=== PATIENT | female | born 2000 | race Caucasian/White ===

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

== ENCOUNTER → 2022-04-19 | Outpatient (CLI) | payer MEDICAID | LOC: LABNPT 14:20 | PROVIDERS: ATTEND Family Medicine | DX: Z11.3 Encounter for screening for infections with a predominantly sexual mode of transmission (principal); A74.9 Chlamydial infection, unspecified; N89.8 Other specified noninflammatory disorders of vagina | CPT/HCPCS: 87210; 87491; 87591 ==

== ENCOUNTER → 2022-04-19 | Outpatient (CLI) | payer MEDICAID ==
[2022-04-19 21:48] LABS: HEPATITIS C ANTIBODY C Non-Reactive (Non-Reactive)
== END ==
LOC: LAB FS 09:26
PROVIDERS: ATTEND Family Medicine
DX: Z11.3 Encounter for screening for infections with a predominantly sexual mode of transmission (principal); A74.9 Chlamydial infection, unspecified
CPT/HCPCS: 36415; 86592; 86803; 87389

== ENCOUNTER → 2022-06-30 | Outpatient (CLI) | payer MEDICAID ==
[~2022-06-30] MED LIST changes: +AMOX500C2 PO; +METR-145 PO
[2022-06-30 13:22] LABS: HEMATOCRIT 39 % (35-52); HEMOGLOBIN 13.3 g/dL (11.5-16.0); MEAN CORPUSCULAR HEMOGLOBIN 29 pg (25-34); MEAN CORPUSCULAR HGB CONC 34 g/dL (32-36); MEAN CORPUSCULAR VOLUME 85 fL (80-99); MEAN PLATELET VOLUME 11.3 fL (9.0-12.2); PLATELET COUNT 408 10^3/uL (130-400); WHITE BLOOD COUNT 11.7 10^3/uL (4.3-11.0)
== END ==
LOC: LAB FS 11:59
PROVIDERS: ATTEND Family Medicine
DX: Z34.01 Encounter for supervision of normal first pregnancy, first trimester (principal); Z3A.01 Less than 8 weeks gestation of pregnancy
CPT/HCPCS: 36415; 80055; 84702; 85027; 87088; 87186; 87389

== ENCOUNTER 2022-07-01 21:26 | Emergency (ER) | payer MEDICAID ==
[~2022-07-01 21:26] MED LIST changes: -AMOX500C2 PO; -METR-145 PO
--- NOTE | 2022-07-01 21:37 | ED GU-Female ---
General Chief Complaint: - Reproductive Stated Complaint: VAGINAL ITCHING/BURNING Source: patient History of Present Illness Date Seen by Provider: Jul 01, 2022 Time Seen by Provider: 21:37 Initial Comments 22-year-old female that is [id number] P0 approximately 5 weeks estimated gestational age presenting with complaints of vaginal itching and burning. She has some pain with urination today as well. She denies any vaginal bleeding or spotting. She has been having some thick white discharge in the last few days. She denies fever, chills, nausea, vomiting, headache, abdominal pain, change in bowels. She states that her most recent sexual partner is currently in [place] [facility]. This was a different partner than when she had around the time she got . Timing/Duration: this afternoon Severity/Quality: moderate, burning Location: vaginal Radiation: vaginal Activities at Onset: none Prior Genitourinary Problems: similar symptoms (Prior chlamydia infection) Sexual [place] History: less than 2 months ago, multiple partners Modifying Factors: Worsens With Movement, Worsens With Urinating Associated Symptoms: No abdominal pain, No diaphoresis; dysuria; No fever/chills, No loss of bladder control, No lower back pain, No lumps, No mass, No nausea/vomiting, No nocturia, No polyuria, No swelling, No syncope, No urinary frequency Allergies and Home Medications Allergies Coded Allergies: lavender (Lavandula angustifolia) (Verified Allergy, Unknown, 03/24/21) Patient Home Medication List Home Medication List Reviewed: Yes Amoxicillin (Amoxicillin) 500 Mg Capsule, 500 MG PO TID Prescribed by: LEONA CHEN on 07/01/222236 Ibuprofen (Ibuprofen) 600 Mg Tablet, 600 MG PO Q8H PRN for PAIN-MILD Prescribed by: DEREJE MAC on 03/24/21 0240 Metronidazole (Metronidazole) 500 Mg Tablet, 500 MG PO BID Prescribed by: LEONA CHEN on 07/01/222236 Review of Systems Review of Systems Constitutional: No chills, No fever EENTM: no symptoms reported Respiratory: no symptoms reported Cardiovascular: no symptoms reported Gastrointestinal: no symptoms reported Genitourinary: see HPI, burning, discharge, dysuria Musculoskeletal: no symptoms reported Skin: no symptoms reported Psychiatric/Neurological: Anxiety Past Nmvvenh-Rjhyfu-Yytifn Hx Patient Social History Tobacco Use?: No Use of E-Cig and/or Vaping dev: No Substance use?: No Alcohol Use?: No Pt feels they are or have been: No Past Medical History Surgery/Hospitalization HX: [id number], Anemia, Painful heavy menses, Depression/anxiety Surgeries: No Physical Exam Vital Signs Vital Signs - First Documented 07/01/22 21:29 Temp 37.5 Pulse 76 Resp 16 B/P (MAP) 120/80 (93) Pulse Ox 100 O2 Delivery Room Air Capillary Refill : Height, Weight, BMI Height: '" Weight: lbs. oz. kg; 18.00 BMI Method: General Appearance: WD/WN, no apparent distress Cardiovascular: normal peripheral pulses, regular rate, rhythm Gastrointestinal: normal bowel sounds, non tender, soft, no pulsatile mass Pelvic: other (patient refused as she states she would want a female provider for the pelvic exam) Neurologic/Psychiatric: alert, oriented x 3 Skin: normal color, warm/dry Progress/Results/Core Measures Suspected Sepsis SIRS Temperature: Pulse: Respiratory Rate: Blood Pressure / Mean: Results/Orders Lab Results Laboratory Tests Test 07/01/22 21:33 07/01/22 22:30 Range/Units Urine Color YELLOW Urine Clarity CLOUDY Urine pH 7.0 5-9 Urine Specific [place] 1.025 H 1.016-1.022 Urine Protein NEGATIVE NEGATIVE Urine Glucose (UA) NEGATIVE NEGATIVE Urine Ketones NEGATIVE NEGATIVE Urine Nitrite NEGATIVE NEGATIVE Urine Bilirubin NEGATIVE NEGATIVE Urine Urobilinogen 0.2 < = 1.0 MG/DL Urine Leukocyte Esterase 2+ H NEGATIVE Urine RBC (Auto) NEGATIVE NEGATIVE Urine RBC NONE /HPF Urine WBC 50-100 H /HPF Urine Squamous Epithelial Cells 10-25 H /HPF Urine Crystals NONE /LPF Urine Bacteria MODERATE H /HPF Urine Casts NONE /LPF Urine Mucus SMALL H /LPF Urine Trichomonas PRESENT /HPF Urine Culture Indicated YES Urine Test POSITIVE NEGATIVE My Orders Orders - LEONA CHEN MD Ua Culture If Indicated (07/01/22 21:35) Hcg,Qualitative Urine (07/01/22 21:35) Urine Culture (07/01/22 21:33) Neis Silvano Dna Urine Test (07/01/22 22:19) Chlamydia Trachomatis Urine (07/01/22 22:19) Ceftriaxone (Rocephin) (07/01/22 22:19) Azithromycin Tablet (Zithromax Tablet) (07/01/22 22:19) Lidocaine 1% Inj 20 Ml (Xylocaine 1% Inj (07/01/22 22:30) Metronidazole Tablet (Flagyl Tablet) (07/01/22 22:30) Medications Given in ED Current Medications Medications Dose Ordered Sig/Lonnie Route Start Time Stop Time Status Last Admin Dose Admin Lidocaine HCl 0.9 ml ONCE ONCE INJ 07/01/22 22:30 07/01/22 22:31 DC 07/01/22 22:42 0.9 ML Metronidazole 500 mg ONCE ONCE PO 07/01/22 22:30 07/01/22 22:31 DC 07/01/22 22:41 500 MG Vital Signs/I&O 07/01/22 07/01/22 21:29 22:44 Temp 37.5 37.5 Pulse 76 76 Resp 16 16 B/P (MAP) 120/80 (93) 120/80 Pulse Ox 100 100 O2 Delivery Room Air Room Air Capillary Refill : Progress Note : Progress Note Urinalysis was obtained and showed patient had trichomonas as well as leukocyte esterase, bacteria, white blood cells to go along with a UTI. They did not see any yeast on the microscopic exam of her urine. Counseled patient about the findings and also discussed her care with Dr. Sung. Patient saw Dr. Sung on Tuesday for her initial OB visit. After discussion with Dr. Sung she was in agreement of using Rocephin and Zithromax here in the ED for treatment for possible gonorrhea or chlamydia. Urine testing for gonorrhea and chlamydia is pending. To treat for the UTI will use amoxicillin. After discussion with Dr. Sung and review of the online medical reference up-to-date will use Flagyl 500 mg p.o. twice daily x7 days to treat for the trichomonas. Counseled on follow- up and return precautions. Advised to check back with the clinic about possible pelvic exam and monitoring for test of cure Departure Impression Primary Impression: Trichomonas vaginalis infection Additional Impressions: Acute cystitis without hematuria UTI (urinary tract infection) in in first trimester Vaginitis affecting in first trimester, antepartum Disposition: HOME, SELF-CARE Condition: Stable Departure-Patient Inst. Decision time for Depature: 22:34 Referrals: SNEHA SUNG MD (PCP/Family) Primary Care Physician Patient Instructions: Sexually Transmitted Diseases ED, Urinary Tract Infections in , STD Prevention Add. Discharge Instructions: Stay well hydrated and drink plenty of water and cranberry juice to help flush out infection Take full course of antibiotics to treat for infection. You will have 2 antibiotics, Flagyl (Metronidazole) and Amoxicillin Call Dr. Sung's office in the am and she may want to have you come in for pelvic exam Your tests on the urine to look for gonorrhea and chlamydia are running but will take a day or two to come back. The shot and pills you got tonight will cover you and treat if either of these infections are present. All discharge instructions reviewed with patient and/or family. Voiced understanding. Scripts Metronidazole (Metronidazole) 500 Mg Tablet 500 MG PO BID for Trichomonas for 7 Days, #14 TAB 0 Refills Prov: LEONA CHEN MD 07/01/22 Amoxicillin (Amoxicillin) 500 Mg Capsule 500 MG PO TID for UTI for 7 Days, #21 CAP 0 Refills Prov: LEONA CHEN MD 07/01/22 LEONA CHEN MD Jul 01, 2022 21:37
[2022-07-01 21:41] LABS: BILIRUBIN,URINE NEGATIVE (NEGATIVE); CLARITY,URINE CLOUDY; COLOR,URINE YELLOW; GLUCOSE, URINE (UA) NEGATIVE (NEGATIVE); KETONES,URINE NEGATIVE (NEGATIVE); LEUKOCYTE ESTERASE ,URINE 2+ (NEGATIVE); NITRITE,URINE NEGATIVE (NEGATIVE); PROTEIN,URINE NEGATIVE (NEGATIVE)
[2022-07-01 21:52] LABS: BACTERIA,URINE MODERATE /HPF; TRICHOMONAS,URINE PRESENT /HPF; WBC,URINE 50-100 /HPF
[2022-07-01 21:53] LABS: HCG,QUALITATIVE URINE POSITIVE (NEGATIVE)
[2022-07-01] MEDS ORDERED: AZITHROMYCIN 250 MG TAB (ZITHROMAX) PO STA (22:19)
[2022-07-01] MEDS ORDERED: metroNIDAZOLE 500MG/100ML IVPB 100 ML IV STA (22:19)
[2022-07-01] MEDS ORDERED: cefTRIAXone 250 MG/2.5 ML ML IM STA (22:19)
[2022-07-01] MEDS ORDERED: metroNIDAZOLE 500 MG (FLAGYL) TAB PO ONE (22:30)
[2022-07-01] MEDS ORDERED: LIDOCAINE 1% INJ 20 ML VIAL INJ ONE (22:30)
[2022-07-01] MEDS ORDERED: AMOX500C2 PO (22:37)
[2022-07-01] MEDS ORDERED: METR-145 PO (22:37)
[2022-07-01 22:44] VITALS: BP 120/80
== END 2022-07-01 22:46 | disposition home or self-care (01) ==
LOC: EDUNIT# 21:26 → ER FS 21:27
DX: O98.311 Other infections with a predominantly sexual mode of transmission complicating pregnancy, first trimester (principal); A59.01 Trichomonal vulvovaginitis; O23.11 Infections of bladder in pregnancy, first trimester; N30.90 Cystitis, unspecified without hematuria; Z3A.01 Less than 8 weeks gestation of pregnancy; Z28.310 Unvaccinated for COVID-19
CPT/HCPCS: 36415; 81000; 84703; 87088; 87491; 87591; 96372; 99284

== ENCOUNTER → 2022-07-21 | Outpatient (CLI) | payer MEDICAID ==
[~2022-07-21] MED LIST changes: +AMOX500C2 PO; +METR-145 PO
[2022-07-21 16:12] LABS: CLARITY,URINE SL CLOUDY; COLOR,URINE YELLOW; GLUCOSE, URINE (UA) NEGATIVE (NEGATIVE); PROTEIN,URINE NEGATIVE (NEGATIVE)
[2022-07-21 16:13] LABS: BACTERIA,URINE FEW /HPF; BILIRUBIN,URINE NEGATIVE (NEGATIVE); KETONES,URINE NEGATIVE (NEGATIVE); LEUKOCYTE ESTERASE ,URINE 2+ (NEGATIVE); NITRITE,URINE NEGATIVE (NEGATIVE); WBC,URINE 50-100 /HPF
== END ==
LOC: LABNPT 16:05
PROVIDERS: ATTEND Family Medicine
DX: Z34.01 Encounter for supervision of normal first pregnancy, first trimester (principal); Z3A.08 8 weeks gestation of pregnancy
CPT/HCPCS: 81000; 87088

== ENCOUNTER 2022-07-31 01:55 | Emergency (ER) | payer MEDICAID ==
[2022-07-31] MEDS ORDERED: CEPHALEXIN 250 MG (KEFLEX) CAP PO ONE (02:30)
--- NOTE | 2022-07-31 02:31 | ED GU-Female ---
General Chief Complaint: OB < 20 WEEKS Stated Complaint: /BLEEDING Nursing Triage Note: Pt states she is 10 weeks and has a small amount of vaginal bleeding Source: patient Exam Limitations: no limitations History of Present Illness Date Seen by Provider: Jul 31, 2022 Time Seen by Provider: 02:07 Initial Comments This 22-year-old young lady presents at around 9 to 10 weeks gestational age with concerns about perineal spotting about an hour ago. She noticed blood on the toilet paper when wiping. She denies any pain or cramping at present. She has noted some mild vaginal discomfort previously. She denies dysuria. She describes a discharge that seems normal and physiologic for . She was seen in June and diagnosed with trichomonas. She did complete the medication including Flagyl and reports no sexual activity of any kind since treatment. She was diagnosed with urinary tract infection in the clinic on Tuesday. She has not yet picked up her antibiotic. She also reports ultrasound on Tuesday which demonstrated a normal single intrauterine . Dr. Sung is providing her care. Allergies and Home Medications Allergies Coded Allergies: lavender (Lavandula angustifolia) (Verified Allergy, Unknown, 03/24/21) Patient Home Medication List Home Medication List Reviewed: Yes Amoxicillin (Amoxicillin) 500 Mg Capsule, 500 MG PO TID Prescribed by: LEONA CHEN on 07/01/222236 Ibuprofen (Ibuprofen) 600 Mg Tablet, 600 MG PO Q8H PRN for PAIN-MILD Prescribed by: DEREJE MAC on 03/24/21 0240 Metronidazole (Metronidazole) 500 Mg Tablet, 500 MG PO BID Prescribed by: LEONA CHEN on 07/01/222236 Review of Systems Review of Systems Constitutional: no symptoms reported EENTM: no symptoms reported Respiratory: no symptoms reported Cardiovascular: no symptoms reported Gastrointestinal: no symptoms reported Genitourinary: see HPI : Yes LMP: May 26, 2022 Musculoskeletal: no symptoms reported Skin: no symptoms reported Psychiatric/Neurological: No Symptoms Reported Endocrine: No Symptoms Reported Past Ewspada-Ibvjzf-Blhvhq Hx Patient Social History Tobacco Use?: No Use of E-Cig and/or Vaping dev: No Substance use?: No Alcohol Use?: No Pt feels they are or have been: No Past Medical History Surgery/Hospitalization HX: [id number], Anemia, Painful heavy menses, Depression/anxiety Surgeries: No Respiratory: No Cardiac: No Neurological: No : Yes Last Menstrual Period: May 26, 2022 Reproductive Disorders: Yes Female Reproductive Disorders: Menstrual Problems Sexually Transmitted Disease: Yes (History of trichomonas) Genitourinary: No Gastrointestinal: No Musculoskeletal: No Endocrine: No HEENT: No Cancer: No Psychosocial: Yes Anxiety, Depression Physical Exam Vital Signs Vital Signs - First Documented 07/31/22 01:55 Temp 37.0 Pulse 94 Resp 18 B/P (MAP) 124/81 (95) Pulse Ox 98 O2 Delivery Room Air Capillary Refill : Less Than 3 Seconds Height, Weight, BMI Height: '" Weight: lbs. oz. kg; 18.00 BMI Method: General Appearance: WD/WN, no apparent distress, thin HEENT: normal ENT inspection Neck: normal inspection Cardiovascular: regular rate, rhythm, no edema, no murmur Respiratory: lungs clear, normal breath sounds, no respiratory distress Gastrointestinal: normal bowel sounds, non tender, soft Extremities: normal inspection, no pedal edema Neurologic/Psychiatric: no motor/sensory deficits, alert, normal mood/affect, oriented x 3 Skin: normal color, warm/dry Progress/Results/Core Measures Suspected Sepsis SIRS Temperature: Pulse: 94 Respiratory Rate: 18 Blood Pressure 124 /81 Mean: 95 Results/Orders Lab Results Laboratory Tests Test 07/31/22 02:28 Range/Units Urine Color YELLOW Urine Clarity CLOUDY Urine pH 6.0 5-9 Urine Specific [place] >=1.030 1.016-1.022 Urine Protein NEGATIVE NEGATIVE Urine Glucose (UA) NEGATIVE NEGATIVE Urine Ketones NEGATIVE NEGATIVE Urine Nitrite NEGATIVE NEGATIVE Urine Bilirubin NEGATIVE NEGATIVE Urine Urobilinogen 0.2 < = 1.0 MG/DL Urine Leukocyte Esterase 2+ H NEGATIVE Urine RBC (Auto) 3+ H NEGATIVE Urine RBC TNTC H /HPF Urine WBC 25-50 H /HPF Urine Squamous Epithelial Cells NONE /HPF Urine Crystals NONE /LPF Urine Bacteria LARGE H /HPF Urine Casts NONE /LPF Urine Mucus LARGE H /LPF Urine Trichomonas MODERATE H /HPF Urine Culture Indicated YES My Orders Orders - ADRIAN WEBB MD Ua Culture If Indicated (07/31/22 02:27) Cephalexin Capsule (Keflex Capsule) (07/31/22 02:30) Urine Culture (07/31/22 02:41) Urine Culture (07/31/22 02:28) Medications Given in ED Current Medications Medications Dose Ordered Sig/Lonnie Route Start Time Stop Time Status Last Admin Dose Admin Cephalexin HCl 500 mg ONCE ONCE PO 07/31/22 02:30 07/31/22 02:31 DC 07/31/22 02:34 500 MG Vital Signs/I&O 07/31/22 07/31/22 01:55 02:36 Temp 37.0 37.0 Pulse 94 94 Resp 18 18 B/P (MAP) 124/81 (95) 124/81 Pulse Ox 98 98 O2 Delivery Room Air Room Air Capillary Refill : Less Than 3 Seconds Blood Pressure Mean: 95 Progress Note : Time: 02:37 Progress Note Patient has no pain or cramping. She already has an antibiotic prescribed for urinary tract infection which she has not yet picked up. She is receiving a dose of Keflex in the emergency room for initial treatment. heart tones by Doppler could not be obtained, largely due to interference from hyperactive bowel activity. Blood type on file is a positive so she does not need a RhoGAM injection. With the absence of notable pain or tenderness and patient's report of normal intrauterine a few days ago, no further evaluation needs to be performed in the ER. She is uncertain if a culture is being performed on her urine specimen in the clinic. We are therefore obtaining a urine specimen for culture. Departure Impression Primary Impression: UTI (urinary tract infection) in in first trimester Additional Impression: Spotting affecting in first trimester Disposition: 01 HOME, SELF-CARE Condition: Stable Departure-Patient Inst. Decision time for Depature: 02:31 Referrals: SNEHA SUNG MD (PCP/Family) Primary Care Physician Patient Instructions: Urinary Tract Infection, Adult (DC), Bleeding in Early ED Add. Discharge Instructions: Complete your antibiotics as prescribed. Please pick them up later today and start them promptly. Follow-up with Dr. Sung on Tuesday to review urine culture results. If Dr. Sung's clinic did not perform a urine culture, a urine culture is being processed through the ER that she can review. Return to care if you have worsening symptoms including escalating bleeding, n otable pain or cramping, fever, or other worsening symptoms. Discuss other follow-up instructions with Dr. Sung on Tuesday. All discharge instructions reviewed with patient and/or family. Voiced understanding. Copy Copies To 1: SNEHA SUNG MD, JOSHUA T MD Jul 31, 2022 02:31
[2022-07-31 02:35] LABS: BILIRUBIN,URINE NEGATIVE (NEGATIVE); COLOR,URINE YELLOW; GLUCOSE, URINE (UA) NEGATIVE (NEGATIVE); KETONES,URINE NEGATIVE (NEGATIVE); LEUKOCYTE ESTERASE ,URINE 2+ (NEGATIVE); NITRITE,URINE NEGATIVE (NEGATIVE); PROTEIN,URINE NEGATIVE (NEGATIVE)
[2022-07-31 02:36] VITALS: BP 124/81
[2022-07-31 02:42] LABS: BACTERIA,URINE LARGE /HPF; CLARITY,URINE CLOUDY; RBC,URINE TNTC /HPF; WBC,URINE 25-50 /HPF
[2022-07-31 02:43] LABS: TRICHOMONAS,URINE MODERATE /HPF
== END 2022-07-31 02:37 | disposition home or self-care (01) ==
LOC: EDUNIT# 01:55 → ER FS 01:57
DX: O26.851 Spotting complicating pregnancy, first trimester (principal); O23.41 Unspecified infection of urinary tract in pregnancy, first trimester; N39.0 Urinary tract infection, site not specified; Z3A.10 10 weeks gestation of pregnancy; Z28.310 Unvaccinated for COVID-19
CPT/HCPCS: 81000; 87088; 99283

== ENCOUNTER → 2022-08-18 | Outpatient (CLI) | payer MEDICAID | LOC: LAB FS 09:15 | PROVIDERS: ATTEND Family Medicine | DX: Z34.81 Encounter for supervision of other normal pregnancy, first trimester (principal); Z3A.00 Weeks of gestation of pregnancy not specified | CPT/HCPCS: 87210 ==

== ENCOUNTER 2022-10-30 18:30 | Emergency (ER) | payer MEDICAID ==
[~2022-10-30] VITALS: Ht 162.5 cm; Wt 51.9 kg
--- NOTE | 2022-10-30 18:44 | ED General ---
General Chief Complaint: Dizziness/Syncope Stated Complaint: ALMAGUER; DIZZINESS; FALLS History of Present Illness Date Seen by Provider: Oct 30, 2022 Time Seen by Provider: 18:42 Initial Comments 22-year-old female who is a primigravida, 23 weeks , LMP of May 26, 2022 with YARON of March 01, 2023, is here with c/o feeling light headed today morning, resulting in a fall today afternoon, where she landed on her butt. Pt stated she felt light headed and then knew she was falling. Denies LOC, head str polly, dysuria, hematuria, abdominal pain, diarrhea. Pt has related nausea which has improved in the 2nd semester. Upon further questioning patient has vaginal discharge, and patient was treated for a UTI with amoxicillin in July 2022, and also was given Flagyl for 7 days for trichomonas infection. Patient still has not finished the course of amoxicillin or Flagyl which was prescribed to her at that time, in 2021. Patient states she is sexually active with 1 partner who is not her baby's father. Allergies and Home Medications Allergies Coded Allergies: lavender (Lavandula angustifolia) (Verified Allergy, Unknown, 03/24/21) Patient Home Medication List Home Medication List Reviewed: Yes Amoxicillin (Amoxicillin) 500 Mg Capsule, 500 MG PO TID Prescribed by: LEONA CHEN on 07/01/222236 Ibuprofen (Ibuprofen) 600 Mg Tablet, 600 MG PO Q8H PRN for PAIN-MILD Prescribed by: DEREJE MAC on 03/24/21 0240 Metronidazole (Metronidazole) 500 Mg Tablet, 500 MG PO BID Prescribed by: LEONA CHEN on 07/01/222236 Review of Systems Review of Systems Constitutional: no symptoms reported, dizziness EENTM: no symptoms reported Respiratory: no symptoms reported Cardiovascular: no symptoms reported Gastrointestinal: nausea Genitourinary: no symptoms reported : Yes Expected Date of Delivery: Mar 01, 2023 LMP: May 26, 2022 Musculoskeletal: no symptoms reported Skin: no symptoms reported Hematologic/Lymphatic: No Symptoms Reported Immunological/Allergic: no symptoms reported Past Ynwcajg-Skzdgo-Xwpswt Hx Past Medical History Surgery/Hospitalization HX: [id number], Anemia, Painful heavy menses, Depression/anxiety Surgeries: No Respiratory: No Cardiac: No Neurological: No Reproductive Disorders: Yes Female Reproductive Disorders: Menstrual Problems Sexually Transmitted Disease: Yes (History of trichomonas) Genitourinary: No Gastrointestinal: No Musculoskeletal: No Endocrine: No HEENT: No Cancer: No Psychosocial: Yes Anxiety, Depression Physical Exam Vital Signs Vital Signs - First Documented 10/30/22 18:35 Temp 36.7 Pulse 84 Resp 18 B/P (MAP) 127/81 (96) Pulse Ox 100 O2 Delivery Room Air Capillary Refill : Height, Weight, BMI Height: '" Weight: lbs. oz. kg; 18.00 BMI Method: General Appearance: No Apparent Distress, WD/WN HEENT: PERRL/EOMI, Normal ENT Inspection Neck: Full Range of Motion, Normal Inspection, Non Tender, Supple Respiratory: Chest Non Tender, Lungs Clear, Normal Breath Sounds Cardiovascular: Regular Rate, Rhythm, No Edema, Normal Peripheral Pulses, Systolic Murmur (Functional systolic murmur present) Gastrointestinal: Non Tender, Soft Back: No CVA Tenderness Extremity: Normal Range of Motion Neurologic/Psychiatric: Alert, Oriented x3, No Motor/Sensory Deficits, Normal Mood/Affect, neon pumper II-XII Norm as Tested Skin: Normal Color Progress/Results/Core Measures Suspected Sepsis SIRS Temperature: Pulse: Respiratory Rate: Laboratory Tests 10/30/22 19:22: White Blood Count 10.2 Blood Pressure / Mean: Laboratory Tests 10/30/22 19:22: Creatinine 0.51L, Platelet Count 257, Total Bilirubin 0.3 Results/Orders Lab Results Laboratory Tests Test 10/30/22 18:49 10/30/22 19:22 Range/Units Urine Color YELLOW Urine Clarity CLOUDY Urine pH 6.5 5-9 Urine Specific May 1.025 H 1.016-1.022 Urine Protein NEGATIVE NEGATIVE Urine Glucose (UA) NEGATIVE NEGATIVE Urine Ketones NEGATIVE NEGATIVE Urine Nitrite NEGATIVE NEGATIVE Urine Bilirubin NEGATIVE NEGATIVE Urine Urobilinogen 0.2 < = 1.0 MG/DL Urine Leukocyte Esterase 2+ H NEGATIVE Urine RBC (Auto) 1+ H NEGATIVE Urine RBC NONE /HPF Urine WBC >100 H /HPF Urine Squamous Epithelial Cells >50 H /HPF Urine Crystals NONE /LPF Urine Bacteria LARGE H /HPF Urine Casts NONE /LPF Urine Mucus NEGATIVE /LPF Urine Trichomonas MODERATE H /HPF Urine Culture Indicated NO Urine Opiates Screen NEGATIVE NEGATIVE Urine Oxycodone Screen NEGATIVE NEGATIVE Urine Methadone Screen NEGATIVE NEGATIVE Urine Propoxyphene Screen NEGATIVE NEGATIVE Urine Barbiturates Screen NEGATIVE NEGATIVE Ur Tricyclic Antidepressants Screen NEGATIVE NEGATIVE Urine Phencyclidine Screen NEGATIVE NEGATIVE Urine Amphetamines Screen NEGATIVE NEGATIVE Urine Methamphetamines Screen NEGATIVE NEGATIVE Urine Benzodiazepines Screen NEGATIVE NEGATIVE Urine Cocaine Screen NEGATIVE NEGATIVE Urine Cannabinoids Screen NEGATIVE NEGATIVE White Blood Count 10.2 4.3-11.0 10^3/uL Red Blood Count 3.53 L 3.80-5.11 10^6/uL Hemoglobin 10.6 L 11.5-16.0 g/dL Hematocrit 30 L 35-52 % Mean Corpuscular Volume 86 80-99 fL Mean Corpuscular Hemoglobin 30 25-34 pg Mean Corpuscular Hemoglobin Concent 35 32-36 g/dL Red Cell Distribution Width 13.0 10.0-14.5 % Platelet Count 257 130-400 10^3/uL Mean Platelet Volume 10.2 9.0-12.2 fL Immature Granulocyte % (Auto) 0 % Neutrophils (%) (Auto) 75 42-75 % Lymphocytes (%) (Auto) 17 12-44 % Monocytes (%) (Auto) 7 0-12 % Eosinophils (%) (Auto) 1 0-10 % Basophils (%) (Auto) 0 0-10 % Neutrophils # (Auto) 7.7 1.8-7.8 10^3/uL Lymphocytes # (Auto) 1.7 1.0-4.0 10^3/uL Monocytes # (Auto) 0.7 0.0-1.0 10^3/uL Eosinophils # (Auto) 0.1 0.0-0.3 10^3/uL Basophils # (Auto) 0.0 0.0-0.1 10^3/uL Immature Granulocyte # (Auto) 0.0 0.0-0.1 10^3/uL Sodium Level 137 135-145 MMOL/L Potassium Level 3.8 3.6-5.0 MMOL/L Chloride Level 104 98-107 MMOL/L Carbon Dioxide Level 21 21-32 MMOL/L Anion Gap 12 5-14 MMOL/L Blood Urea Nitrogen 9 7-18 MG/DL Creatinine 0.51 L 0.60-1.30 MG/DL Estimat Glomerular Filtration Rate 137 BUN/Creatinine Ratio 18 Glucose Level 94 70-105 MG/DL Calcium Level 8.8 8.5-10.1 MG/DL Corrected Calcium 9.0 8.5-10.1 MG/DL Magnesium Level 2.0 1.6-2.4 MG/DL Total Bilirubin 0.3 0.1-1.0 MG/DL Aspartate Amino Transf (AST/SGOT) 13 5-34 U/L Alanine Aminotransferase (ALT/SGPT) 8 0-55 U/L Alkaline Phosphatase 66 40-136 U/L Total Protein 6.8 6.4-8.2 GM/DL Albumin 3.7 3.2-4.5 GM/DL My Orders Orders - BOBBY CABRAL MD Drug Screen Stat (Urine) (10/30/22 18:42) Ua Culture If Indicated (10/30/22 18:42) Cbc With Automated Diff (10/30/22 18:56) Comprehensive Metabolic Panel (10/30/22 18:56) Magnesium (10/30/22 18:56) Metronidazole Tablet (Flagyl Tablet) (10/30/22 20:15) Cephalexin Capsule (Keflex Capsule) (10/30/22 20:14) Vital Signs/I&O 10/30/22 18:35 Temp 36.7 Pulse 84 Resp 18 B/P (MAP) 127/81 (96) Pulse Ox 100 O2 Delivery Room Air Capillary Refill : Progress Note : Progress Note 1. Acute cystitis with hematuria/trichomonas infection: - CBC/ CMP: Unremarkable - UA: Positive for leukocyte esterase, RBC, WBC, bacteria, and trichomonas - UDS: Negative -Flagyl 2 g oral stat in ER -Keflex 500 mg twice daily for 7 days, with first tab given in ER -Adequate hydration advised -Importance of treatment compliance for UTI explained to patient and her mother. One-time dose of Flagyl 2 g oral was given in the ER. A one-time dose would benefit this patient more since she is known for noncompliance of medication. -Follow-up with [facility] in 3 to 7 days. Patient will need to be retested for trichomonas in 1 to 3 months, and also retested with UA in 2 weeks. -The patient was seen in the ED, and treated appropriately to presentation at a specific point in time. Patient is informed that there is a possibility that disease and illness can evolve and change in acuity rapidly or slowly after pa tariq is discharged from the ER. Precautionary advice given to the patient for immediate return to ER if symptoms worsen or do not resolve, and to seek emergency care sooner rather than later. Pt also advised on the importance of PCP follow up and compliance with management and follow up plan with PCP and/or specialist, as this is part of the management plan. Pt verbally expressed understanding. ECG Initial ECG Impression Date: Oct 30, 2022 Departure Impression Primary Impression: Infection due to trichomonas (vaginalis) Additional Impression: Cystitis during in second trimester, antepartum Disposition: 01 HOME, SELF-CARE Condition: Stable Departure-Patient Inst. Referrals: SNEHA SUNG MD (PCP) Primary Care Physician Patient Instructions: Trichomoniasis (DC), Urinary Tract Infections in Add. Discharge Instructions: -Keflex 500 mg twice daily for 7 days, with first tab given in ER -Adequate hydration advised -Importance of treatment compliance for UTI explained to patient and her mother. One-time dose of Flagyl 2 g oral was given in the ER. A one-time dose would benefit this patient more since she is known for noncompliance of medication. -Follow-up with [facility] in 3 to 7 days. Patient will need to be retested for trichomonas in 1 to 3 months, and also retested with UA in 2 weeks. All discharge instructions reviewed with patient and/or family. Voiced understanding. Scripts Cephalexin (Cephalexin) 500 Mg Tablet 500 MG PO BID for 7 Days, #14 TAB Prov: BOBBY CABRAL MD 10/30/22 BOBBY CABRAL MD Oct 30, 2022 18:44
[2022-10-30 18:53] LABS: BILIRUBIN,URINE NEGATIVE (NEGATIVE); COLOR,URINE YELLOW; GLUCOSE, URINE (UA) NEGATIVE (NEGATIVE); KETONES,URINE NEGATIVE (NEGATIVE); LEUKOCYTE ESTERASE ,URINE 2+ (NEGATIVE); NITRITE,URINE NEGATIVE (NEGATIVE); PH,URINE 6.5 (5-9); PROTEIN,URINE NEGATIVE (NEGATIVE)
[2022-10-30 18:58] LABS: CLARITY,URINE CLOUDY
[2022-10-30 18:59] LABS: BACTERIA,URINE LARGE /HPF; SQUAMOUS EPITHELIAL CELL,UR >50 /HPF; TRICHOMONAS,URINE MODERATE /HPF; WBC,URINE >100 /HPF
[2022-10-30 19:02] LABS: AMPHETAMINE SCREEN, URINE NEGATIVE (NEGATIVE); BARBITURATE SCREEN URINE NEGATIVE (NEGATIVE); BENZODIAZEPINES SCREEN URINE NEGATIVE (NEGATIVE); CANNABINOID SCREEN, URINE NEGATIVE (NEGATIVE); COCAINE SCREEN URINE NEGATIVE (NEGATIVE); METHADONE STAT NEGATIVE (NEGATIVE); OPIATE SCREEN URINE NEGATIVE (NEGATIVE); OXYCODONE STAT NEGATIVE (NEGATIVE); PROPOXYPHENE STAT NEGATIVE (NEGATIVE); TRICYCLIC ANTIDEPRESSANTS SCRE NEGATIVE (NEGATIVE)
[2022-10-30 19:26] LABS: BASOPHILS % (AUTO) 0 % (0-10); EOSINOPHILS # (AUTO) 0.1 10^3/uL (0.0-0.3); EOSINOPHILS % (AUTO) 1 % (0-10); HEMATOCRIT 30 % (35-52); HEMOGLOBIN 10.6 g/dL (11.5-16.0); LYMPHOCYTES # (AUTO) 1.7 10^3/uL (1.0-4.0); LYMPHOCYTES % (AUTO) 17 % (12-44); MEAN CORPUSCULAR HEMOGLOBIN 30 pg (25-34); MEAN CORPUSCULAR HGB CONC 35 g/dL (32-36); MEAN CORPUSCULAR VOLUME 86 fL (80-99); MEAN PLATELET VOLUME 10.2 fL (9.0-12.2); MONOCYTES # (AUTO) 0.7 10^3/uL (0.0-1.0); MONOCYTES % (AUTO) 7 % (0-12); NEUTROPHILS # (AUTO) 7.7 10^3/uL (1.8-7.8); NEUTROPHILS % (AUTO) 75 % (42-75); PLATELET COUNT 257 10^3/uL (130-400); WHITE BLOOD COUNT 10.2 10^3/uL (4.3-11.0)
[2022-10-30 19:55] LABS: ALBUMIN 3.7 GM/DL (3.2-4.5); BILIRUBIN,TOTAL 0.3 MG/DL (0.1-1.0); CALCIUM 8.8 MG/DL (8.5-10.1); CREATININE SERUM 0.51 MG/DL (0.60-1.30); POTASSIUM 3.8 MMOL/L (3.6-5.0); TOTAL PROTEIN 6.8 GM/DL (6.4-8.2)
[2022-10-30] MEDS ORDERED: CEPHALEXIN 250 MG (KEFLEX) CAP PO STA (20:14)
[2022-10-30] MEDS ORDERED: metroNIDAZOLE 500 MG (FLAGYL) TAB PO ONE (20:15)
[2022-10-30] MEDS ORDERED: CEPH500T PO (20:39)
[2022-10-30 20:47] VITALS: BP 118/76
== END 2022-10-30 20:47 | disposition home or self-care (01) ==
LOC: EDUNIT# 18:30 → ER FS 18:32
DX: O98.812 Other maternal infectious and parasitic diseases complicating pregnancy, second trimester (principal); A59.01 Trichomonal vulvovaginitis; N30.90 Cystitis, unspecified without hematuria; Z28.310 Unvaccinated for COVID-19; Z3A.23 23 weeks gestation of pregnancy
CPT/HCPCS: 36415; 80053; 80306; 81000; 83735; 85025

== ENCOUNTER → 2022-11-11 | Outpatient (CLI) | payer MEDICAID ==
[~2022-11-11] MED LIST changes: +CEPH500T PO
== END ==
LOC: LABNPT 09:30
PROVIDERS: ATTEND Family Medicine
DX: A59.9 Trichomoniasis, unspecified (principal)
CPT/HCPCS: 87210

== ENCOUNTER 2022-12-25 22:18 | Emergency (ER) | payer MEDICAID ==
[~2022-12-25] VITALS: Ht 162.5 cm; Wt 59.2 kg
[2022-12-25 22:58] LABS: BACTERIA,URINE MODERATE /HPF; BILIRUBIN,URINE NEGATIVE (NEGATIVE); CLARITY,URINE CLEAR; COLOR,URINE YELLOW; GLUCOSE, URINE (UA) NEGATIVE (NEGATIVE); KETONES,URINE NEGATIVE (NEGATIVE); LEUKOCYTE ESTERASE ,URINE TRACE (NEGATIVE); NITRITE,URINE NEGATIVE (NEGATIVE); PROTEIN,URINE NEGATIVE (NEGATIVE); WBC,URINE 25-50 /HPF
--- NOTE | 2022-12-25 23:02 | ED GU-Female ---
General Chief Complaint: OB > 20 WEEKS Stated Complaint: VAGINAL BLEEDING/31 WK PREGNAMT Nursing Triage Note: Patient presents per POV accompanied by mother and boyfriend ambulating to ED 2. 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 Pt reports 30wk 4days with EDC 03/01/23; LMP 05/24/22. Pt felt movement prior to intercourse. Reports spotting blood in underwear. Source: patient History of Present Illness Date Seen by Provider: Dec 25, 2022 Time Seen by Provider: 22:31 Initial Comments 22-year-old female presenting with complaints of vaginal bleeding that started approximately 25 minutes prior to arrival. She did have intercourse approximately 3 to 4 hours prior to arrival. She denies having any pelvic pain or uterine cramping. She has not checked to see if she was continuing to bleed but had noticed blood in her underwear. She had become very worried and called her family who brought her here to the emergency department. She states that she has 30 weeks and will be 31 weeks on Tuesday. She has an estimated delivery date of March 01, 2023. She states that at the beginning of the she did have trichomonas and a UTI but has been doing well on her follow-up and checkups with Dr. Sung. At 36 weeks she plans to switch to Dr. ANDERSON for delivery in [place]. Tonight she denies any pain or burning with urination. She has had no nausea or vomiting and no abdominal pain. Timing/Duration: just prior to arrival Activities at Onset: sexual activity (After sexual activity) Prior Genitourinary Problems: none Sexual [place] History: less than 2 months ago, single partner Modifying Factors: Worsens With Urinating (When she goes to urinate here in the ED she had noticed a light pink color) Associated Symptoms: No abdominal pain, No diaphoresis, No dysuria, No fever/chills, No loss of bladder control, No lower back pain, No lumps, No mass, No nausea/vomiting, No nocturia, No polyuria, No swelling, No syncope, No urinary frequency Allergies and Home Medications Allergies Coded Allergies: lavender (Lavandula angustifolia) (Verified Allergy, Unknown, 03/24/21) Patient Home Medication List Home Medication List Reviewed: Yes [] , (Reported) Entered as Reported by: TOMMY MABRY on 12/26/22 0036 Last Action: New Order Discontinued Medications Amoxicillin (Amoxicillin) 500 Mg Capsule, 500 MG PO TID Discontinued Reason: Referral/FU Appt-Addtl Prescribed by: LEONA CHEN on 07/01/222236 Last Action: Discontinued Cephalexin (Cephalexin) 500 Mg Tablet, 500 MG PO BID Discontinued Reason: Referral/FU Appt-Addtl Prescribed by: BOBBY CABRAL MD on 10/30/222038 Last Action: Discontinued Ibuprofen (Ibuprofen) 600 Mg Tablet, 600 MG PO Q8H PRN for PAIN-MILD Discontinued Reason: Referral/FU Appt-Addtl Prescribed by: DEREJE MAC on 03/24/21 024 Last Action: Discontinued Metronidazole (Metronidazole) 500 Mg Tablet, 500 MG PO BID Discontinued Reason: Referral/FU Appt-Addtl Prescribed by: LEONA CHEN on 07/01/222236 Last Action: Discontinued Review of Systems Review of Systems Constitutional: No chills, No dizziness, No fever EENTM: no symptoms reported Respiratory: no symptoms reported Cardiovascular: no symptoms reported Gastrointestinal: no symptoms reported Genitourinary: see HPI : Yes Expected Date of Delivery: Mar 01, 2023 Musculoskeletal: no symptoms reported Skin: no symptoms reported Psychiatric/Neurological: Anxiety Past Oizuwsw-Kgypwv-Uvgpfn Hx Patient Social History Tobacco Use?: No Use of E-Cig and/or Vaping dev: No Substance use?: No Alcohol Use?: No Immunizations Up To Date Influenza Vaccine Up-to-Date: No; Not Current First/Initial COVID19 Vaccinat: Unvaccinated Second COVID19 Vaccination Shan: Unvaccinated Third COVID19 Vaccination Date: Unvaccinated Past Medical History Surgery/Hospitalization HX: [id number], Anemia, Painful heavy menses, Depression/anxiety Surgeries: No Respiratory: No Cardiac: No Neurological: No Expected Date of Delivery: Mar 01, 2023 Last Menstrual Period: May 24, 2022 Reproductive Disorders: Yes Female Reproductive Disorders: Menstrual Problems Sexually Transmitted Disease: Yes (History of trichomonas) Genitourinary: No Gastrointestinal: No Musculoskeletal: No Endocrine: No HEENT: No Cancer: No Psychosocial: Yes Anxiety, Depression Physical Exam Vital Signs Vital Signs - First Documented 12/25/22 22:31 Temp 36.3 Pulse 88 Resp 18 B/P (MAP) 134/96 (109) Pulse Ox 99 O2 Delivery Room Air Capillary Refill : Less Than 3 Seconds Height, Weight, BMI Height: '" Weight: lbs. oz. kg; 22.00 BMI Method: General Appearance: WD/WN, other (anxious) Cardiovascular: normal peripheral pulses, regular rate, rhythm Respiratory: chest non-tender, lungs clear, normal breath sounds Gastrointestinal: normal bowel sounds, non tender, soft, no pulsatile mass, ot her (gravid uterus and heart tones 144-152 bpm) Genital/Rectal: other (On speculum exam she had a small amount of bright red blood in the vaginal vault. There was friability to the cervix with no active bleeding. She had a long thick cervix and it did not appear dilated) Extremities: normal range of motion, non-tender, normal capillary refill Neurologic/Psychiatric: alert, oriented x 3 Skin: normal color, warm/dry Progress/Results/Core Measures Suspected Sepsis SIRS Temperature: Pulse: 88 Respiratory Rate: 18 Blood Pressure 134 /96 Mean: 109 Results/Orders Lab Results Laboratory Tests Test 12/25/22 22:40 Range/Units Urine Color YELLOW Urine Clarity CLEAR Urine pH 7.0 5-9 Urine Specific [place] <=1.005 1.016-1.022 Urine Protein NEGATIVE NEGATIVE Urine Glucose (UA) NEGATIVE NEGATIVE Urine Ketones NEGATIVE NEGATIVE Urine Nitrite NEGATIVE NEGATIVE Urine Bilirubin NEGATIVE NEGATIVE Urine Urobilinogen 0.2 < = 1.0 MG/DL Urine Leukocyte Esterase TRACE H NEGATIVE Urine RBC (Auto) 3+ H NEGATIVE Urine RBC 2-5 H /HPF Urine WBC 25-50 H /HPF Urine Squamous Epithelial Cells 10-25 H /HPF Urine Crystals NONE /LPF Urine Bacteria MODERATE H /HPF Urine Casts NONE /LPF Urine Mucus NEGATIVE /LPF Urine Culture Indicated YES My Orders Orders - LEONA CHEN MD Ua Culture If Indicated (12/25/22 22:56) Urine Culture (12/25/22 22:40) Vital Signs/I&O 12/25/22 12/25/22 22:31 23:40 Temp 36.3 36.1 Pulse 88 82 Resp 18 18 B/P (MAP) 134/96 (109) 128/87 Pulse Ox 99 99 O2 Delivery Room Air Room Air Capillary Refill : Less Than 3 Seconds Blood Pressure Mean: 109 Progress Note #1: Progress Note Potential diagnosis of labor, threatened miscarriage, postcoital cervical bleeding, urinary tract infection. The fact that the patient was not having any pelvic pain or cramping was encouraging. She was not continuing to have heavy bleeding when she went to the bathroom. Her recent sexual intercourse could certainly trigger the bleeding. Her heart tones are also encouraging as there 144 to 152 bpm on my Dopp ler exam of the gravid uterus. We will obtain urinalysis and I will check in with the on-call OB/cook vegetable Dr. Mendez. Progress Note #2: Time: 22:56 Progress Note Discussed with Dr. Mendez over the phone. I reviewed the case with the patient being approximately 30 weeks and 4 days estimated gestational age with a due date of March 01. She is following with Dr. Sung and plans to deliver with Dr. ANDERSON. She had sexual intercourse approximately 3 to 4 hours prior to arrival and some blood in her underwear about 25 minutes prior to arrival. On physical exam she was not having heavy or active bleeding but the cervix did appear friable. He was reassured with the patient not continuing to have active bleeding and not having pelvic pain or cramping. Advised that the patient could drive down to [place] to have labor and delivery do an NST for additional monitoring. However since she appears stable otherwise she could go home and do watchful waiting. Strict return precautions of going to labor and delivery if she developed pelvic pain, heavy bleeding, passing fluids. Encoura ge rest and avoid sex or inserting anything in the vagina. Call her doctor on Tuesday for repeat evaluation. Urinalysis to come back in had shown some blood but also had epithelial cells for possibly contaminated specimen. She was not having any pain or burning with urination so will defer antibiotics until culture comes back. Departure Impression Primary Impression: Postcoital bleeding Additional Impression: Incidental intrauterine Disposition: HOME, SELF-CARE Condition: Stable Departure-Patient Inst. Decision time for Depature: 23:23 Referrals: SNEHA SUNG MD (PCP/Family) Primary Care Physician GLENDY ANDERSON DO Patient Instructions: Vaginal Bleeding in Late ED Add. Discharge Instructions: Avoid sex or inserting anything in the Vagina until you can follow up with Dr. Sung. Call Dr. Sung Tuesday to get rechecked. If you have worsening bleeding, develop pelvic pain or have more symptoms then go to [place] to be seen on Labor and Delivery. All discharge instructions reviewed with patient and/or family. Voiced understanding. LEONA CHEN MD Dec 25, 2022 23:02
[2022-12-25 23:40] VITALS: BP 128/87
[2022-12-26] MEDS ORDERED: Prenatal (00:36)
== END 2022-12-25 23:40 | disposition home or self-care (01) ==
LOC: EDUNIT# 22:28 → ER FS 22:34
DX: O46.93 Antepartum hemorrhage, unspecified, third trimester (principal); Z28.310 Unvaccinated for COVID-19; Z3A.30 30 weeks gestation of pregnancy
CPT/HCPCS: 81000; 87088

== ENCOUNTER 2023-02-06 08:17 | Outpatient (CLI) | payer MEDICAID ==
[~2023-02-06] VITALS: Ht 162.6 cm; Wt 59.4 kg
[~2023-02-06 08:17] MED LIST changes: +Prenatal
[2023-02-06 08:38] VITALS: BP 127/83
[2023-02-06 08:39] LABS: BILIRUBIN,URINE NEGATIVE (NEGATIVE); CLARITY,URINE CLEAR; COLOR,URINE YELLOW; GLUCOSE, URINE (UA) NEGATIVE (NEGATIVE); KETONES,URINE TRACE (NEGATIVE); LEUKOCYTE ESTERASE ,URINE 1+ (NEGATIVE); NITRITE,URINE NEGATIVE (NEGATIVE); PH,URINE 6.5 (5-9); PROTEIN,URINE TRACE (NEGATIVE)
[2023-02-06 08:48] LABS: BACTERIA,URINE FEW /HPF; RBC,URINE RARE /HPF
--- NOTE | 2023-02-06 21:25 | OB Triage Report ---
Standard Progress Note Progress Notes/Assess & Plan Date Seen by a Provider: February 06, 2023 Time Seen by a Provider: 13:00 Expected Date of Delivery: Mar 01, 2023 Gestational Age in Weeks: 36 Gestational Age in Days: 5 LMP/YARON Comment: As above. Progress/Assessment & Plan L&D Triage: @ 36 5/7 weeks presents to L&D with complaints of contractions since 0700 hours. No other complaints. SROM testing negative. UA sub-optimal, sent for UC. VSS/AF. Noted to have Category I FHR tracing per RN. Cervix upon presentation 2 cm dilated and long, with no tar heat exchanger cleaner 2 hours on L&D. Contractions q1 1/2 - 2 minutes initially then spaced out to q2-6 minutes after 2 hours, barely noticed by patient. Patient lives in [place]. Assessment is that patient is not in labor. Released to home with strict labor precautions. Follow up routine OB, sooner prn. Final Diagnosis 36 weeks Not in labor Diagnosis/Problems Diagnosis/Problems (1) Assessment & Plan: 36 weeks Not in labor Released to home with strict labor precautions. Follow up routine OB in clinic as scheduled, sooner prn. HERBER MARR DO February 06, 2023 21:25
== END 2023-02-06 11:15 | disposition home or self-care (01) ==
LOC: LDRP 08:17 → WSo 08:17
PROVIDERS: ATTEND Obstetrics & Gynecology
DX: O62.9 Abnormality of forces of labor, unspecified (principal); Z3A.36 36 weeks gestation of pregnancy
CPT/HCPCS: 81000; 87088

== ENCOUNTER 2023-02-13 21:17 | Outpatient (CLI) | payer MEDICAID ==
[~2023-02-13] VITALS: Ht 162.6 cm; Wt 59.0 kg
[2023-02-13] VITALS (10 sets, daily range): BP systolic 115–136; BP diastolic 73–87
[2023-02-13 21:37] LABS: BILIRUBIN,URINE NEGATIVE (NEGATIVE); CLARITY,URINE CLEAR; COLOR,URINE YELLOW; GLUCOSE, URINE (UA) NEGATIVE (NEGATIVE); KETONES,URINE NEGATIVE (NEGATIVE); LEUKOCYTE ESTERASE ,URINE 2+ (NEGATIVE); NITRITE,URINE NEGATIVE (NEGATIVE); PROTEIN,URINE NEGATIVE (NEGATIVE)
[2023-02-13 21:46] LABS: BACTERIA,URINE NEGATIVE /HPF; SQUAMOUS EPITHELIAL CELL,UR 0-2 /HPF
[2023-02-13] MEDS ORDERED: ACETAMINOPHEN 500 MG TAB (TYLENOL) ONE (22:00)
[2023-02-13] MEDS ORDERED: ACETAMINOPHEN 500 MG TAB (TYLENOL) PO ONE (22:00)
[2023-02-15] MEDS ORDERED: FERR325T24 PO (06:20)
[2023-02-15] MEDS ORDERED: BENZ78AE5 TP (06:20)
[2023-02-15] MEDS ORDERED: DOCU100C37 PO (06:20)
[2023-02-15] MEDS ORDERED: IBUP-844 PO (06:20)
[2023-02-15] MEDS ORDERED: ACET-93 PO (06:20)
== END 2023-02-14 | disposition home or self-care (01) ==
LOC: WSo 21:17 → LDRP 21:17 → WSo 02-14
PROVIDERS: ATTEND Obstetrics & Gynecology
DX: O62.9 Abnormality of forces of labor, unspecified (principal); Z3A.37 37 weeks gestation of pregnancy
CPT/HCPCS: 81000; 87088; G0463; 99213

== ENCOUNTER 2023-02-14 21:30 | Inpatient (IN) | payer MEDICAID ==
[~2023-02-14] VITALS: Ht 162.6 cm; Wt 59.0 kg
[2023-02-14 21:55] VITALS: BP 118/73
[2023-02-14 22:00] VITALS: BP 118/73
[2023-02-14 22:52] VITALS: BP 129/90
[2023-02-14] MEDS: OXYTOCIN PRE-MIX DRIP 500 ML IV SCH ×2 (23:19→23:49)
[2023-02-14 23:26] VITALS: BP 120/72
[2023-02-14 23:38] LABS: BASOPHILS # (AUTO) 0.1 10^3/uL (0.0-0.1); BASOPHILS % (AUTO) 0 % (0-10); EOSINOPHILS % (AUTO) 0 % (0-10); HEMATOCRIT 31 % (35-52); HEMOGLOBIN 10.1 g/dL (11.5-16.0); LYMPHOCYTES % (AUTO) 14 % (12-44); MEAN CORPUSCULAR HEMOGLOBIN 26 pg (25-34); MEAN CORPUSCULAR HGB CONC 33 g/dL (32-36); MEAN CORPUSCULAR VOLUME 79 fL (80-99); MEAN PLATELET VOLUME 12.5 fL (9.0-12.2); MONOCYTES # (AUTO) 0.8 10^3/uL (0.0-1.0); MONOCYTES % (AUTO) 6 % (0-12); NEUTROPHILS % (AUTO) 79 % (42-75); PLATELET COUNT 263 10^3/uL (130-400); WHITE BLOOD COUNT 13.9 10^3/uL (4.3-11.0)
[2023-02-14 23:44] VITALS: BP 120/70
[2023-02-14] MEDS ORDERED: OXYTOCIN PRE-MIX DRIP 500 ML IV ONE (23:48)
[2023-02-14] MEDS ORDERED: KETOROLAC 30 MG/ML VIAL ONE (23:48)
[2023-02-14 23:51] VITALS: BP 117/70
[2023-02-15] VITALS (8 sets, daily range): BP systolic 97–127; BP diastolic 62–82
[2023-02-15] MEDS ORDERED: ACETAMINOPHEN 500 MG TAB (TYLENOL) ONE (00:27)
[2023-02-15] MEDS ORDERED: BENZOCAINE/MENTHOL (DERMOPLAST) 56 ML CAN TP PRN ×2 (00:30→02:30)
[2023-02-15] MEDS ORDERED: NALOXONE 0.4 MG/ML 1 ML (NARCAN) VIAL IV PRN (00:30)
[2023-02-15] MEDS ORDERED: WITCH HAZEL(TUCKS) 40 EA JAR TOP PRN ×2 (00:30→02:30)
[2023-02-15] MEDS ORDERED: KETOROLAC 30 MG/ML VIAL IVP ONE (00:30)
[2023-02-15] MEDS ORDERED: LIDOCAINE/EPI 2% 1:200,00 (XYLOCAINE) 10 ML VIAL INJ PRN (00:30)
[2023-02-15] MEDS ORDERED: D5 LR IV SOLUTION 1,000 ML IV SCH (00:30)
[2023-02-15] MEDS ORDERED: MEASLES,MUMPS,RUBELLA 1 EA INJ SQ ONE (00:30)
[2023-02-15] MEDS ORDERED: TETANUS,DIPTH,PERTUSS P/F (BOOSTRIX) 0.5 ML VIAL IM ONE (00:30)
[2023-02-15] MEDS ORDERED: METHYLERGONOVINE 0.2 MG/ML (METHERGINE) AMP IM ONE (00:30)
[2023-02-15] MEDS: ACETAMINOPHEN 500 MG TAB (TYLENOL) PO SCH ×4 (00:32→18:06)
[2023-02-15] MEDS ORDERED: WITCH HAZEL(TUCKS) 40 EA JAR ONE (01:24)
[2023-02-15] MEDS ORDERED: BENZOCAINE/MENTHOL (DERMOPLAST) 56 ML CAN TP ONE (01:24)
[2023-02-15] MEDS ORDERED: CATHETER FLUSH 10 ML SYR IV SCH (06:00)
[2023-02-15] MEDS: CATHETER FLUSH 10 ML SYR IV SCH ×3 (06:00→22:00)
--- NOTE | 2023-02-15 06:07 | History & Physical-OB ---
OB - Chief Complaint & HPI Date/Time Date of Admission: Date of Admission: Feb 14, 2023 at 21:40 Date seen by a Provider: Feb 15, 2023 Time Seen by a Provider: 10:35 Chief Complaint/History OB-Reason for Admission/Chief: Onset of Labor Hx : 1 Hx Para: 0 Expected Date of Delivery: Feb 14, 2023 Gestational Age in Weeks: 37 Gestational Age in Days: 6 Admission Nurse Assessment Rev: Yes History of Labs A pos Antibody neg RI RPR NR HBsAg NR HIV NR GC neg GBS neg Allergies and Home Medications Allergies Coded Allergies: lavender (Lavandula angustifolia) (Verified Allergy, Unknown, 03/24/21) Patient Home Medication List Home Medication List Reviewed: Yes [] , (Reported) Entered as Reported by: TOMMY MABRY on 12/26/22 0036 OB - History Hx of Present Care: Yes Ultrasounds: Normal mid trimester US Obstetrical Complications: None Medical Complications: None Patient Past Medical History nc Social History/Family History 2nd Hand Smoke Exposure: No Immunizations Influenza Vaccine Up-to-Date: No; Not Current First/Initial COVID19 Vaccine: Unvaccinated Second COVID19 Vaccination: Unvaccinated Third COVID19 Vaccination Date: Unvaccinated OB - Admission Exam Physical Exam Vitals: Vital Signs 02/14/23 02/15/23 22:52 01:21 Temp 37.0 Pulse 68 Resp 18 B/P (MAP) 121/80 (94) Pulse Ox 99 O2 Delivery Room Air HEENT: NCAT Heart: Rhythm Normal Lungs: Clear Abdomen: Gravid Extremities: Normal Reflexes: Normal Cervical Dilatation: 6cm Effacement: 100% Station: 0 Membranes: Ruptured Amniotic Fluid: Clear Heart Rate: 130's Accelerations: Accelerations Present Decelerations: Early Decelerations Handle Maker Variability: Average (6-25) Contractions on Admission: < 5 Minutes Apart Intensity: Firm Labs Laboratory Tests Test 02/14/23 21:45 Range/Units White Blood Count 13.9 H 4.3-11.0 10^3/uL Red Blood Count 3.92 3.80-5.11 10^6/uL Hemoglobin 10.1 L 11.5-16.0 g/dL Hematocrit 31 L 35-52 % Mean Corpuscular Volume 79 L 80-99 fL Mean Corpuscular Hemoglobin 26 25-34 pg Mean Corpuscular Hemoglobin Concent 33 32-36 g/dL Red Cell Distribution Width 13.4 10.0-14.5 % Platelet Count 263 130-400 10^3/uL Mean Platelet Volume 12.5 H 9.0-12.2 fL Immature Granulocyte % (Auto) 1 % Neutrophils (%) (Auto) 79 H 42-75 % Lymphocytes (%) (Auto) 14 12-44 % Monocytes (%) (Auto) 6 0-12 % Eosinophils (%) (Auto) 0 0-10 % Basophils (%) (Auto) 0 0-10 % Neutrophils # (Auto) 11.0 H 1.8-7.8 10^3/uL Lymphocytes # (Auto) 2.0 1.0-4.0 10^3/uL Monocytes # (Auto) 0.8 0.0-1.0 10^3/uL Eosinophils # (Auto) 0.0 0.0-0.3 10^3/uL Basophils # (Auto) 0.1 0.0-0.1 10^3/uL Immature Granulocyte # (Auto) 0.1 0.0-0.1 10^3/uL Syphilis Total Antibody Negative Negative OB - Assessment/Plan/Diagnosis Assessment Assessment: active labor Admission Dx 23 yo @ 38 weeks Active labor GBS neg Admission Status: Inpatient Order (span 2 midnights) Reason for Inpatient Admission: 23 yo @ 38 weeks Active labor GBS neg Plan Plan: Expectant Management GLENDY ANDERSON DO Feb 15, 2023 06:07
--- NOTE | 2023-02-15 06:10 | OB Labor & Delivery Record ---
L&D History Date of Service Date of Service: Feb 15, 2023 History Expected Date of Delivery: Feb 14, 2023 Gestational Age in Weeks: 38 Hx : 1 Hx Para: 0 Complications Events: Routine care Operative Indications (Cesarea: N/A-Vaginal Delivery Intrapartal Events: None L&D Stage1 Stage One Onset of Labor - Date: Feb 15, 2023 Monitors and Tracing Monitor Mode: External Heart Rate: 120 Station: +1 Tree Killer Variability: Average (6-10) Short Term Variability: Present Presentation: Vertex Vital Signs VS - Last 72 Hours, by Label 02/14/23 02/14/23 02/14/23 02/14/23 21:55 22:00 22:52 23:26 Temp 36.4 36.4 Pulse 75 75 77 106 Resp 18 18 18 18 B/P (MAP) 118/73 (88) 129/90 (103) 120/72 (88) Pulse Ox 99 99 99 O2 Delivery Room Air Room Air Room Air Room Air 02/14/23 02/14/23 02/15/23 02/15/23 23:44 23:51 00:21 00:36 Temp 37.2 Pulse 95 88 86 73 Resp 18 18 18 18 B/P (MAP) 120/70 (87) 117/70 (86) 120/63 (82) 127/82 (97) O2 Delivery Room Air Room Air Room Air Room Air 02/15/23 02/15/23 01:07 01:21 Temp 37.0 Pulse 66 68 Resp 18 18 B/P (MAP) 121/73 (89) 121/80 (94) O2 Delivery Room Air Room Air Rupture of Membranes Spontaneous Ruture of Membrane: Yes Amniotic Membrane Rupture Time: 2029 Amniotic Membrane Fluid Desc.: Clear Vaginal Bleeding Description: Normal Show Progress/Notes Patient admitted for active labor, progressed rapidly to complete an d+ 2 station L&D Stage2 Stage Two Stage II Date: Feb 15, 2023 Monitors and Tracing Monitor Mode: External Heart Rate: 120 Monitor Accelerations: Uniform Monitor Decelerations: Variable [place] Killer Variability: Average (6-10) Position: Right Occiput Anterior Presentation: Vertex Cord Descript/Complications Cord Vessel Description: 3 Vessels Delivery Type Delivery Method: Spontaneous Vaginal Anterior Shoulder: Left Episiotomy/Perineal Laceration Laceraction(s)/Extensions: Yes Episiotomy Description: Vaginal Extension/lac, 2nd degree Degree (describe repair) 2nd degree vaginal laceration and right periurethral repaired using 3-0 rapide in usual fashion Condition of Infant Delivery 1 minute Comment: 9 5 minute Comment: 10 Notes Live female weight 7lbs 8oz Condition of Infant Condition of Infant: Living Exam: No Observed Abnormalities Resuscitation Resuscitation: N/A - Spontaneous Resp L&D Stage3 Stage Three Stage III Date: Feb 15, 2023 Pictocin Pitocin Administration Comment: 30 mu wide open after delivery of placenta Placenta Delivery Placenta Delivery: Spontaneous Delivery Summary Summary Estimated blood loss (mL): 350 Attending at delivery: Glendy Anderson DO Condition of Delivery Examined: Cervix Examined, Uterus Explored Post Hemorrhage: No Condition of Mother stable Condition of Infant (s) stable GLENDY ANDERSON DO Feb 15, 2023 06:10
--- NOTE | 2023-02-15 06:18 | Postpartum Progress Note ---
Note Note Day # 1 Subjective: Patient is without complaints. Ambulating, voiding. Tolerating a regular diet without nausea or vomiting. Normal lochia. Pain is well controlled with oral pain medications. Objective: Physical Exam: General - Alert and oriented, no apparent distress Abdomen - Soft, appropriately tender to palpation, non-distended, fundus firm at umbilicus Extremities - no edema, negative Noni's bilaterally Assessment: PPD 1 NVD Acute blood loss anemia, superimposed on anemia of Plan: Routine care. Encourage breast feeding. Encourage ambulation. Ferrous sulfate supplementation. Plan for discharge tomorrow Vitals - Labs Vital Signs - I&O Vital Signs Date Time Temp Pulse Resp B/P (MAP) Pulse Ox O2 Delivery O2 Flow Rate FiO2 02/15/23 01:21 37.0 68 18 121/80 (94) Room Air 02/15/23 01:07 66 18 121/73 (89) Room Air 02/15/23 00:36 73 18 127/82 (97) Room Air 02/15/23 00:21 37.2 86 18 120/63 (82) Room Air 02/14/23 23:51 88 18 117/70 (86) Room Air 02/14/23 23:44 95 18 120/70 (87) Room Air 02/14/23 23:26 106 18 120/72 (88) Room Air 02/14/23 22:52 77 18 129/90 (103) 99 Room Air 02/14/23 22:00 36.4 75 18 99 Room Air 02/14/23 21:55 36.4 75 18 118/73 (88) 99 Room Air I & O 02/15/23 07:00 Intake Total 1000 ml Balance 1000 ml Labs Laboratory Tests 02/14/23 21:45: White Blood Count 13.9H, Red Blood Count 3.92, Hemoglobin 10.1L, Hematocrit 31L, Mean Corpuscular Volume 79L, Mean Corpuscular Hemoglobin 26, Mean Corpuscular Hemoglobin Concent 33, Red Cell Distribution Width 13.4, Platelet Count 263, Mean Platelet Volume 12.5H, Immature Granulocyte % (Auto) 1, Neutrophils (%) (Auto) 79H, Lymphocytes (%) (Auto) 14, Monocytes (%) (Auto) 6, Eosinophils (%) (Auto) 0, Basophils (%) (Auto) 0, Neutrophils # (Auto) 11.0H, Lymphocytes # (Auto) 2.0, Monocytes # (Auto) 0.8, Eosinophils # (Auto) 0.0, Basophils # (Auto) 0.1, Immature Granulocyte # (Auto) 0.1, Syphilis Total Antibody Negative 02/15/23 06:12: GLENDY ANDERSON DO Feb 15, 2023 06:18
[2023-02-15 06:19] LABS: BASOPHILS % (AUTO) 0 % (0-10); EOSINOPHILS % (AUTO) 0 % (0-10); HEMATOCRIT 26 % (35-52); HEMOGLOBIN 8.5 g/dL (11.5-16.0); LYMPHOCYTES # (AUTO) 1.7 10^3/uL (1.0-4.0); LYMPHOCYTES % (AUTO) 11 % (12-44); MEAN CORPUSCULAR HEMOGLOBIN 26 pg (25-34); MEAN CORPUSCULAR HGB CONC 32 g/dL (32-36); MEAN CORPUSCULAR VOLUME 79 fL (80-99); MEAN PLATELET VOLUME 12.1 fL (9.0-12.2); MONOCYTES # (AUTO) 0.8 10^3/uL (0.0-1.0); MONOCYTES % (AUTO) 5 % (0-12); NEUTROPHILS # (AUTO) 12.8 10^3/uL (1.8-7.8); NEUTROPHILS % (AUTO) 83 % (42-75); PLATELET COUNT 201 10^3/uL (130-400); WHITE BLOOD COUNT 15.5 10^3/uL (4.3-11.0)
--- NOTE | 2023-02-15 06:19 | Discharge Inst-Women's Service ---
Discharge Inst-Women's Serv Depart Medication/Instructions New, Converted or Re-Newed RX: Transmitted to Pharmacy Final Diagnosis PPD 2 NVD Problems Reviewed?: Yes Consults/Follow Up Additional Follow Up: Yes Orders/Referrals Dr. Anderson in 6 weeks Activity Activity: Activity as Tolerated Driving Instructions: No Driving for 1 Week NO SMOKING: NO SMOKING Nothing Inside Vagina: No Douching, No [place], No Tampons Diet Discharge Diet: No Restrictions Symptoms to Report to : Bleeding Excessive, Pain Increased, Fever Over 101 Degrees F, Vaginal Bleeding Increase, Questions/Concerns For Any Problems or Questions: Contact Your Physician GLENDY ANDERSON DO Feb 15, 2023 06:19
[2023-02-15] MEDS ORDERED: ACET-93 PO (06:20)
[2023-02-15] MEDS ORDERED: FERR325T24 PO (06:20)
[2023-02-15] MEDS ORDERED: IBUP-844 PO (06:20)
[2023-02-15] MEDS ORDERED: DOCU100C37 PO (06:20)
[2023-02-15] MEDS ORDERED: BENZ78AE5 TP (06:20)
[2023-02-15] MEDS: IBUPROFEN 600 MG (MOTRIN) TAB PO SCH ×4 (06:41→20:06)
[2023-02-15] MEDS: PRENATAL VITAMIN 1 EA TAB PO SCH (06:41)
[2023-02-15] MEDS ORDERED: HYDROcodone/APAP 5 MG/325 MG (LORTAB) TAB PO PRN (10:45)
[2023-02-15] MEDS: DOCUSATE SODIUM 100 MG (COLACE) CAP PO SCH ×2 (11:00→20:32)
[2023-02-15] MEDS: FERROUS SULF 325 MG (IRON) TAB PO SCH (11:00)
[2023-02-15] MEDS ORDERED: PROMETHAZINE INJ 25 MG/ML (PHENERGAN) AMP IVP ONE (16:00)
[2023-02-15] MEDS ORDERED: PROMETHAZINE INJ 25 MG/ML (PHENERGAN) AMP ONE (16:28)
[2023-02-16] MEDS: ACETAMINOPHEN 500 MG TAB (TYLENOL) PO SCH ×2 (01:29→08:34)
[2023-02-16] MEDS: IBUPROFEN 600 MG (MOTRIN) TAB PO SCH ×2 (01:29→08:33)
[2023-02-16] MEDS: CATHETER FLUSH 10 ML SYR IV SCH (01:33)
[2023-02-16 02:07] VITALS: BP 106/70
--- NOTE | 2023-02-16 08:12 | Postpartum Progress Note ---
Note Note Day # 2 Subjective: Patient is without complaints. Ambulating, voiding. Tolerating a regular diet without nausea or vomiting. Normal lochia. Pain is well controlled with oral pain medications. Vulvar swelling from yesterday is better, patient reports no concerns now with pain nor using the restroom. Objective: Physical Exam: General - Alert and oriented, no apparent distress Abdomen - Soft, appropriately tender to palpation, non-distended, fundus firm at umbilicus Extremities - no edema, negative Noni's bilaterally Assessment: PPD 2 NVD Acute blood loss anemia Plan: Routine care. Encourage breast feeding. Encourage ambulation. Ferrous sulfate supplementation. Plan for discharge today Vitals - Labs Vital Signs - I&O Vital Signs Date Time Temp Pulse Resp B/P (MAP) Pulse Ox O2 Delivery O2 Flow Rate FiO2 02/16/23 02:07 36.2 70 18 106/70 (82) 98 Room Air 02/15/23 20:32 36.6 65 18 97/62 (74) 98 Room Air 02/15/23 15:20 36.7 70 18 117/72 (87) 98 Room Air 02/15/23 10:58 36.9 73 18 122/75 (91) 98 Room Air GLENDY ANDERSON DO Feb 16, 2023 8:12 am
[2023-02-16 08:33] VITALS: BP 108/71
[2023-02-16] MEDS: FERROUS SULF 325 MG (IRON) TAB PO SCH (08:34)
[2023-02-16] MEDS: DOCUSATE SODIUM 100 MG (COLACE) CAP PO SCH (08:34)
[2023-02-16] MEDS: PRENATAL VITAMIN 1 EA TAB PO SCH (08:34)
== END 2023-02-16 14:45 | disposition home or self-care (01) | DRG 806 ==
LOC: WSo 21:30 → LDRP 21:30 → WSo 21:39 → LDRP 21:40
PROVIDERS: ADMIT Obstetrics & Gynecology; ATTEND Obstetrics & Gynecology
PROC: 10E0XZZ Delivery of Products of Conception, External Approach (ICD-10-PCS; principal; 2023-02-15)
PROC: 0UQGXZZ Repair Vagina, External Approach (ICD-10-PCS; 2023-02-15)
PROC: 0UQMXZZ Repair Vulva, External Approach (ICD-10-PCS; 2023-02-15)
DX: O71.4 Obstetric high vaginal laceration alone (principal); D62 Acute posthemorrhagic anemia; Z37.0 Single live birth; O71.82 Other specified trauma to perineum and vulva; O99.03 Anemia complicating the puerperium; Z3A.38 38 weeks gestation of pregnancy
CPT/HCPCS: 36415; 85025; 85027; 86780; 86850; 86900; 86901; 99212